=== PATIENT | female | born 1970 | race Caucasian/White ===

== ENCOUNTER 2018-05-07 20:18 | Inpatient (IN) | payer OTHER ==
[~2018-05-07] VITALS: Ht 149.9 cm; Wt 54.1 kg
--- NOTE | ~2018-05-07 | P ---
[facility] [place] [address] PROCEDURE REPORT Name: HEIKE,TATILA Room #: 215-P [facility] IN M.R.#: [id number] Admission: 05/07/18 Attend Phys: Ana Cristina Guerin Discharge: 05/08/18 Date of : 74 Report #: [id number] THIS REPORT FOR: //name// CC: IMANI Clifford BRIEF HISTORY: The patient is a 47-year-old woman who underwent colonoscopy at an outpatient [facility] yesterday. She was found to have a diminutive polyp and possibly pseudopolyps in the transverse colon, which were biopsied. There was some bleeding, so an endoclip was placed. Last evening, she developed multiple episodes of rectal bleeding, filled the commode with blood and presented to Emergency Room at [facility]. PREOPERATIVE DIAGNOSIS: Postprocedure rectal bleeding. POSTOPERATIVE DIAGNOSES: 1. Adherent clot in vessel, upper rectum. 2. Diverticulosis coli. MEDICATIONS: Deep sedation with propofol per anesthesia. SPECIMEN: None. ESTIMATED BLOOD LOSS: None related to procedure. PROCEDURE: Flexible sigmoidoscopy with hemostasis. FINDINGS: Prior to propofol sedation, procedure was discussed with the patient as well as potential risks and its complications. She indicates she understands and desires to proceed. DESCRIPTION OF PROCEDURE: With the patient in left lateral decubitus position, digital examination was completed, which revealed bloody material. Subsequently, an Olympus video colonoscope was introduced in the rectum and advanced under direct vision. The procedure was done unprepped. The scope was advanced into the sigmoid colon. As we advanced the scope into the proximal sigmoid colon, green nonbloody stool was encountered. Thus the bleeding was felt to be distal from this area. We withdrew the scope back to the rectum where there was a large amount of old blood seen. This was an unprepped exam. There was blood and clots and some stool material. We irrigated and cleaned as well as possible. There was no evidence of bright red blood or active bleeding. However, some diverticula were seen in the sigmoid colon, but again active bleeding was not seen. In the upper rectum, there were noted be some polypoid-like lesions, which like hyperplastic polyps. One of these lesions appeared to have a vessel with clot on it. A Hemoclip was placed with good [facility] [address] [place] [address] PROCEDURE REPORT Name: NAGI BURROUGHS Room #: 215-P [facility] IN M.R.#: [id number] Admission: 05/07/18 Attend Phys: Ana Cristina Guerin Discharge: 05/08/18 Date of : 74 Report #: [id number] placement. It was thought this was potentially the site of the bleeding. Upon retroflexion, no lesions were seen. Scope was withdrawn. The patient tolerated the procedure well. DISPOSITION: Potential bleeding site identified. A hemostatic clip placed. No ongoing bleeding at this time. We will start clear liquids. <ELECTRONICALLY SIGNED> By: Erich Burnett MD 05/10/18 1030 1220 1250 Erich Burnett MD /nt
--- NOTE | ~2018-05-07 | EKG ---
[address] [address] ELECTROCARDIOGRAM REPORT Name: NAGI BURROUGHS Room #: 215-P ADM IN M.R.#: [id number] Admission: 05/07/18 Attend Phys: Ana Cristina Guerin Discharge: Date of : 74 Report #: [id number] THIS REPORT FOR: //name// [facility] ED Test Date: 2018-05-07 Test Time: 20:43:31 Pat Name: NAGI BURROUGHS Department: Room: [facility] Gender: F [employer]: MARY : 1970 Requested By: Nilsa Sainz Order Number: [id number] MD: Murray Raymond Measurements Intervals [place] Rate: 80 P: 36 VT: 153 QRS: 8 QRSD: 70 T: 23 QT: 388 QTc: 448 Interpretive Statements Sinus rhythm Normal tracing No previous ECG available for comparison Electronically Signed On 05-08-2018 8:01:29 [employer] by Murray Raymond [email or web address] <ELECTRONICALLY SIGNED> By: Murray Raymond MD, [facility] 05/08/18 0801 204 2043 Murray Raymond MD, FACC /EPI
[2018-05-07 20:20] VITALS: BP 193/116
[2018-05-07 20:44] LABS: URINE BILIRUBIN NEGATIVE (Negative); URINE BLOOD TRACE (Negative); URINE CLARITY CLEAR; URINE COLOR YELLOW; URINE GLUCOSE-RANDOM* NEGATIVE (Negative); URINE KETONES NEGATIVE (Negative); URINE LEUKOCYTES NEGATIVE (Negative); URINE NITRITE NEGATIVE (Negative); URINE PROTEIN (DIPSTICK) NEGATIVE (Negative); URINE SPECIFIC GRAVITY 1.025 (1.005-1.035); URINE UROBILINOGEN 0.2 E.U./dl (0.2-1.0)
[2018-05-07 20:51] LABS: ABSOLUTE NEUTROPHILS 2.7 thou/uL (1.4-8.2); BASOPHILS 1.1 % (0.0-2.0); EOSINOPHILS 1.1 % (0.0-3.0); HEMATOCRIT 43.8 % (37.0-47.0); HEMOGLOBIN 15.1 gm/dL (12.0-15.0); LYMPHOCYTES 46.4 % (24.0-44.0); MCH 31.3 pg (26.0-34.0); MCHC 34.5 g/dL (28.0-37.0); MCV 90.7 fL (80.0-100.0); MONOCYTES 8.4 % (1.0-8.0); PLATELET COUNT 409 thou/uL (150-400); RBC 4.83 mil/uL (4.20-5.00); RDW 12.8 % (10.5-14.5); WBC 6.3 thou/uL (4.0-11.0)
[2018-05-07 21:02] LABS: CALCIUM 9.4 mg/dL (8.5-10.1); POTASSIUM 3.9 mmol/L (3.5-5.1)
[2018-05-07 21:05] LABS: APTT 27.6 Seconds (24.5-32.8)
[2018-05-07 21:08] LABS: ALBUMIN 3.9 g/dL (3.4-5.0); TOTAL BILIRUBIN 0.3 mg/dL (<0.1-1.0); TOTAL PROTEIN 8.3 g/dL (6.4-8.2)
[2018-05-07 22:58] VITALS: BP 161/104
[2018-05-07 23:18] VITALS: BP 163/97
[2018-05-07 23:47] VITALS: BP 152/106
[2018-05-08] MEDS ORDERED: LEXAPRO 10 MG T10 M1 PO (00:37)
[2018-05-08 00:39] LABS: HEMATOCRIT 38.9 % (37.0-47.0); HEMOGLOBIN 13.3 gm/dL (12.0-15.0)
[2018-05-08] MEDS ORDERED: AMBIEN 5 MG TABL5 M1 PO (00:42)
[2018-05-08] MEDS ORDERED: XANAX 0.25 MG0.25 MG PO (00:45)
[2018-05-08] MEDS ORDERED: ZYRTEC10 M4 PO (00:47)
[2018-05-08] MEDS ORDERED: PIRMELLA1 EAC1 PO (00:49)
[2018-05-08 04:40] LABS: CALCIUM 8.7 mg/dL (8.5-10.1); CREATININE 0.8 mg/dL (0.6-1.0); POTASSIUM 4.1 mmol/L (3.5-5.1)
[2018-05-08 04:55] LABS: HEMATOCRIT 39.6 % (37.0-47.0); HEMOGLOBIN 13.1 gm/dL (12.0-15.0); MCH 30.2 pg (26.0-34.0); MCHC 33.1 g/dL (28.0-37.0); RBC 4.35 mil/uL (4.20-5.00); WBC 6.1 thou/uL (4.0-11.0)
[2018-05-08 06:05] VITALS: BP 135/98
[2018-05-08 07:40] VITALS: BP 145/95
[2018-05-08 09:19] LABS: HEMOGLOBIN 13.4 gm/dL (12.0-15.0)
[2018-05-08 11:05] VITALS: BP 132/77
[2018-05-08 17:06] VITALS: BP 132/77
== END 2018-05-08 17:15 | disposition home or self-care (01) | DRG 379 ==
LOC: ER 20:18 → 2N 22:50 → EROBS 22:50 → 2N 23:33
PROVIDERS: Nurse Practitioner Family; Physician Assistant
PROC: 0W3P8ZZ Control Bleeding in Gastrointestinal Tract, Via Natural or Artificial Opening Endoscopic (ICD-10-PCS; principal; 2018-05-08)
DX: K57.31 Diverticulosis of large intestine without perforation or abscess with bleeding (principal); F41.9 Anxiety disorder, unspecified; K59.00 Constipation, unspecified; K62.89 Other specified diseases of anus and rectum; Z88.6 Allergy status to analgesic agent; Z88.1 Allergy status to other antibiotic agents; Z91.02 Food additives allergy status
CPT/HCPCS: 10081; 62110; 62900; 70005